=== PATIENT | male | born 1950 | race Caucasian/White ===

== ENCOUNTER 2020-01-01 15:20 | Emergency (ER) | payer BC, MEDICARE ==
[2020-01-01] MEDS ORDERED: Bacitracin Oint 1 GM U/D Packet TOP ONE (15:33)
--- NOTE | 2020-01-01 15:44 | EDM.PDOC ---
ED HPI GENERAL MEDICAL PROBLEM - General Chief Complaint: General Stated Complaint: FISH HOOK LEFT 2ND FINGER Time Seen by Provider: 01/01/20 15:44 Source of Information: Reports: Patient History Limitations: Reports: No Limitations - History of Present Illness INITIAL COMMENTS - FREE TEXT/NARRATIVE: pt has a treble hook in the left second finger. Onset: Today Duration: Hour(s): Location: Reports: Upper Extremity, Left Associated Symptoms: Reports: No Other Symptoms - Related Data Allergies Allergy/AdvReac Type Severity Reaction Status Date / Time No Known Allergies Allergy Verified 01/01/20 15:41 Home Meds: Home Meds Metoprolol Tartrate 1 tab PO DAILY 01/01/20 [History] atorvaSTATin Calcium [Lipitor] 1 tab PO DAILY 01/01/20 [History] ED ROS GENERAL - Review of Systems Review Of Systems: See Below Constitutional: Reports: No Symptoms HEENT: Reports: No Symptoms Respiratory: Reports: No Symptoms Cardiovascular: Reports: No Symptoms Endocrine: Reports: No Symptoms GI/Abdominal: Reports: No Symptoms : Reports: No Symptoms Skin: Reports: Other ( trble hook in left second finger) ED EXAM, GENERAL - Physical Exam Exam: See Below Free Text/Narrative:: pt has a treble hook in the left second finger Exam Limited By: No Limitations General Appearance: Alert, Anxious Extremities: Other (pt has a treble hook in the left second finger) Course - Vital Signs Last Recorded V/S: Last Vital Signs Temp 35.9 C L 01/01/20 15:32 Pulse 75 01/01/20 15:32 Resp 16 01/01/20 15:32 BP 170/93 H 01/01/20 15:32 Pulse Ox 97 01/01/20 15:32 - Orders/Labs/Meds Meds: Medications Discontinued Medications Generic Name Dose Route Start Last Admin Trade Name Freq PRN Reason Stop Dose Admin Bacitracin 1 dose 01/01/20 15:33 Bacitracin Oint 1 Gm TOP 01/01/20 15:34 ONETIME ONE Lidocaine HCl 5 ml 01/01/20 15:33 Xylocaine-Mpf 1% INJECT 01/01/20 15:34 ONETIME ONE - Re-Assessments/Exams Free Text/Narrative Re-Assessment/Exam: 01/01/20 15:48 area was cleansed and the hook was pushed through, the flori was cut off. The hook was removed without difficulty Departure - Departure Time of Disposition: 15:44 Disposition: Home, Self-Care 01 Condition: Fair Clinical Impression: Fish hook injury of hand - Discharge Information Referrals: PCP,None [Primary Care Provider] - Forms: ED Department Discharge Care Plan Goals: soak if tender, you are current with tetanus. Sepsis Event Note (ED) - Focused Exam Vital Signs: Vital Signs Temp Pulse Resp BP Pulse Ox 01/01/20 15:32 35.9 C L 75 16 170/93 H 97
== END 2020-01-01 15:55 | disposition home or self-care (01) ==
LOC: JP.ED 15:20
DX: S60.451A Superficial foreign body of left index finger, initial encounter (principal); Z79.899 Other long term (current) drug therapy; W45.8XXA Other foreign body or object entering through skin, initial encounter
CPT/HCPCS: 99282; J2001